=== PATIENT | male | born 1965 | race Caucasian/White ===

== ENCOUNTER 2017-01-05 16:48 | Day surgery (SDC) | payer OTHER ==
[~2017-01-05] VITALS: Ht 185.4 cm; Wt 105.0 kg
[~2017-01-05 16:48] MED LIST: LACTATED RINGER'S 1000 ML INJ 1,000 ML IV ONE; ONDANSETRON HCL 4 MG/2 ML VIAL IV PUSH ONE; PROPOFOL 200 MG/20 ML AMP IV ONE
[2017-01-05 16:52] VITALS: BP 143/83; PULSE 72; RESP 20; TEMP 97.9; O2SAT 99
--- NOTE | 2017-01-05 17:04 | PD ---
Physical Exam Date Seen by Provider: Jan 05, 2017 Time Seen by Provider: 17:00 Narrative 51 yr old male here with laceration that he sustained around 330 pm. He cut himself on a piece of glass while doing remodeling work at his house. He went to an urgent care and was told they would repair it, however patient had some issues with moving his thumb and was told to come to ED. He is not up to date on tetanus. He does have some limited ROM in the right thumb. Bleeding is controlled. He is awaiting bed placement. Data Data Last Documented VS Vital Signs Date Time Temp Pulse Resp B/P Pulse Ox O2 Delivery O2 Flow Rate FiO2 01/05/17 16:52 97.9 72 20 143/83 99 Room Air [facility] Medical Record Reviewed: Yes Supervised Visit with MARQUIS: No Condition: Stable Tami Stanford Jan 05, 2017 17:04
[2017-01-05] MEDS ORDERED: TETANUS/DIPHTHERIA TOXOID ADULT 0.5 ML VIAL IM ONE (18:00)
--- NOTE | 2017-01-05 18:10 | RADRPT ---
EXAM DATE/TIME: 01/05/2017 18:02 [place] COMPARISON: No previous studies available for comparison. INDICATIONS : Right hand pain after light bulb broke and lacerated hand. MEDICAL HISTORY : None. SURGICAL HISTORY : None. ENCOUNTER: Initial ACUITY: 1 day PAIN SCORE: 7/10 LOCATION: Right hand FINDINGS: No definite fractures, or dislocations are identified. No definite lytic or sclerotic lesion is seen . There is no evidence for a radiopaque foreign body for technique. CONCLUSION: Unremarkable study. Denise Callejas MD on January 05, 2017 at 18:08 Board Certified Radiologist. This report was verified electronically.
--- NOTE | 2017-01-05 19:48 | PD ---
HPI Chief Complaint: Laceration/Skin Injury Time Seen by Provider: 17:00 Travel History International Travel<30 days: No Contact w/Intl Traveler<30days: No Traveled to known affect area: No History of Present Illness HPI Patient is 51-year-old male presenting to him or for evaluation of a laceration to his right forearm just proximal to the wrist. Patient sustained a laceration when a fluorescent light bulb broke, falling from the ceiling and cutting him. Patient went to an urgent care center, when he could not extend his thumb he was sent to emergency department for further evaluation. Patient denies any significant past medical history. [facility] Past Medical History Medical History: Denies Significant Hx Tetanus Vaccination: > 5 Years Past Surgical History Surgical History: No Previous Surgery Social History Alcohol Use: No Tobacco Use: No Substance Use: No Allergies-Medications (Allergen,Severity, Reaction): Coded Allergies: No Known Allergies (Unverified , 01/05/17) Reported Meds & Prescriptions Reported Meds & Active Scripts Active Reported Cephalexin 500 Mg Cap 500 Mg PO Q12H Hydrocodone-Acetaminophen 5-325 mg Tab 1 Tab PO Q6H PRN Review of Systems Except as stated in HPI: all other systems reviewed are Neg Musculoskeletal: Positive: Limited ROM Skin: Positive Other (laceration) Physical Exam Narrative GENERAL: Well-developed, well-nourished, alert male. Resting comfortably in no acute distress. SKIN: Warm and dry. 1 cm laceration to the forearm just proximal to the wrist more so on the dorsal aspect base of wound is well visualized, no obvious tendon injury. HEAD: Normocephalic. EYES: No scleral icterus. No injection or drainage. NECK: Supple, trachea midline. No JVD or lymphadenopathy. CARDIOVASCULAR: Regular rate and rhythm without murmurs, gallops, or rubs. RESPIRATORY: Breath sounds equal bilaterally. No accessory muscle use. GASTROINTESTINAL: Abdomen soft, non-tender, nondistended. MUSCULOSKELETAL: No cyanosis, or edema. Limited extension of right first finger , patient is neurovascularly intact. BACK: Nontender without obvious deformity. No CVA tenderness. Data Data Last Documented VS Vital Signs Date Time Temp Pulse Resp B/P Pulse Ox O2 Delivery O2 Flow Rate FiO2 01/05/17 16:52 97.9 72 20 143/83 99 Room Air Orders Tetanus/Diphtheria Tox Adult (Tetanus/Di (01/05/17 18:00) Hand, Complete ([id number]) (01/05/17 ) Complete Blood Count With Diff (01/05/17 19:40) Basic Metabolic Panel (Bmp) (01/05/17 19:40) Act Partial Throm Time (Ptt) (01/05/17 19:40) Prothrombin Time / Inr (Pt) (01/05/17 19:40) Iv Access Insert/Monitor (01/05/17 19:40) Admit Order (Ed Use Only) (01/05/17 19:49) MDM Medical Decision Making Medical Screen Exam Complete: Yes Emergency Medical Condition: Yes Interpretation(s) Last Impressions Hand X-Ray 01/05/17 0000 Signed Impressions: Service Date/Time: Saturday, January 05, 2017 18:02 - CONCLUSION: Unremarkable study. Denise Callejas MD Vital Signs Date Time Temp Pulse Resp B/P Pulse Ox O2 Delivery O2 Flow Rate FiO2 01/05/17 16:52 97.9 72 20 143/83 99 Room Air Differential Diagnosis Laceration versus tendon injury versus other Narrative Course Patient's 51-year-old male presenting for evaluation of a laceration to his right wrist that appears to have tendon involvement. Patient is neurovascularly intact. Discussed with Dr. Etienne, he was sent images of the laceration. Due to patient's limited movement previous full function patient will be taken to the OR for exploration and tendon repair. Abrasion has not eaten since noon today. CBC, BMP, coags ordered. Patient is aware of plan and agreeable. Diagnosis Primary Impression: Tendon dysfunction Additional Impression: Laceration of wrist with complication Qualified Code: S61.511A - Laceration of wrist with complication, right, initial encounter Admitting Information Admitting Physician Requests: Observation Condition: Stable Harika De Luna Jan 05, 2017 19:47
--- NOTE | 2017-01-05 20:42 | MB ---
cc: ISAAC MARES MD DATE OF CONSULTATION: 01/05/2017. REASON FOR CONSULTATION: Right wrist / forearm laceration. HISTORY OF PRESENT ILLNESS: The patient is a 51-year-old right hand-dominant male who presented to the emergency department with complaints of laceration to the right wrist / forearm today. The patient sustained a laceration when a florescent light bulb broke and fell from the ceiling lacerating his right distal forearm. The patient is presenting with inability to move the thumb. He denies any tingling or numbness. The patient was initially seen at Urgent Care and was referred to [facility] for further evaluation. He denies any other injuries. PAST MEDICAL HISTORY / PAST SURGICAL HISTORY: His past medical-surgical history are noted and are not significant. EXAMINATION The patient is alert and oriented x3. Examination of the right forearm / wrist reveals an oblique laceration over the radial aspect of the distal forearm over the first dorsal compartment region. The laceration measures about 2 cm. The patient has swelling over the thumb base and he has tenderness noted over the region. The patient has intact active extension of the thumb IP joint. He has limited abduction and extension at the MP and the thumb CMC joint. Range of motion of the thumb passively is full. Passive flexion of the thumb is associated with pain. He has intact sensation over the dorsal aspect of the thumb. IMAGING STUDIES: X-rays of the right wrist and hand was reviewed and show no evidence of foreign body or bony injury. ASSESSMENT: 51-year-old male with laceration to the right wrist / distal forearm with questionable laceration of the first dorsal compartment tendons. PLAN: The plan will be to keep the patient n.p.o., take him emergently for exploration, possible repair of extensor and abductor tendons right thumb. The patient has been explained the risks and benefits of the procedure. Isaac Mares MD SE/GIDEON /8:35 PM /8:42 PM [facility]O
[2017-01-05] MEDS ORDERED: ACETAMINOPHEN 1000 MG/100 ML VIAL IV ONE (20:44)
[2017-01-05] MEDS ORDERED: MIDAZOLAM HCL 2 MG/2 ML VIAL ONE (20:45)
[2017-01-05] MEDS ORDERED: METOCLOPRAMIDE HCL 10 MG/2 ML VIAL ONE (20:45)
[2017-01-05] MEDS ORDERED: FAMOTIDINE 20 MG/2 ML VIAL ONE (20:45)
[2017-01-05] MEDS ORDERED: ceFAZolin INJ 1,000 MG VIAL IV ONE (20:57)
[2017-01-05] MEDS ORDERED: LIDOCAINE HCL 2% 20 ML VIAL INFIL ONE (21:08)
[2017-01-05] MEDS ORDERED: BUPIVACAINE HCL PF 0.5% 10 ML VIAL INFIL ONE (21:08)
[2017-01-05 21:15] LABS: AUTOMATED NEUTROPHIL # 4.2 TH/MM3 (1.8-7.7); BASOPHIL # 0.1 TH/MM3 (0-0.2); BASOPHIL % 0.8 % (0.0-2.0); EOSINOPHIL # 0.1 TH/MM3 (0-0.4); EOSINOPHIL % 1.3 % (0.0-4.0); HEMATOCRIT 45.2 % (39.0-51.0); HEMO FLAGS DIFF FINAL; LYMPH % 29.4 % (9.0-44.0); MEAN CELL VOLUME 91.4 FL (80.0-100.0); MEAN CORPUSCULAR HGB CONC 32.8 % (32.0-36.0); MONO % 6.6 % (0.0-8.0); NEUT % 61.9 % (16.0-70.0); PLATELET COUNT 247 TH/MM3 (150-450); RED BLOOD COUNT 4.95 MIL/MM3 (4.50-5.90); RED CELL DISTRIBUTION WIDTH 13.5 % (11.6-17.2); WHITE BLOOD COUNT 6.8 TH/MM3 (4.0-11.0)
[2017-01-05] MEDS ORDERED: NEOMYCIN/POLYMYXIN 1 ML G.U. IRRIGANT TOPICAL ONE (21:15)
[2017-01-05 21:29] LABS: APTT (PATIENT) 27.3 SEC (24.3-30.1); PROTHROMBIN TIME - PATIENT 11.5 SEC (9.8-11.6)
[2017-01-05 21:38] LABS: BICARBONATE 32.5 MEQ/L (21.0-32.0); POTASSIUM 3.6 MEQ/L (3.5-5.1)
--- NOTE | 2017-01-05 22:39 | PD.OP ---
Operative Report Preoperative Diagnosis: (1) Laceration of right wrist with tendon involvement Postoperative Diagnosis: (1) Laceration of right wrist with tendon involvement (2) laceration abductor pollicis longus right wrist (3) laceration extensor pollicis brevis right wrist Procedure: exploration repair of laceration abductor pollicis longus and extensor pollicis brevis tendons right wrist/forearm Anesthesia: general Surgeon: Ren Peguero [employer] Helper(s): none Operation and Findings: oblique laceration over the first dorsal compartment of the right wrist/distal forearm measuring 2-3 cms laceration of the extensor pollicis brevis laceration of the abductor pollicis longus Ren Peguero MD Jan 05, 2017 22:39
[2017-01-05] MEDS ORDERED: ACETAMINOPHEN/HYDROcodone 325 MG/5 MG TAB PO PRN (23:00)
[2017-01-05] MEDS ORDERED: DO NOT ADM ANY ANTICOAGULANT DRUGS PRN (23:00)
--- NOTE | 2017-01-05 23:07 | MP ---
cc: ISAAC MARES DATE OF SURGERY 01/05/17 PREOPERATIVE DIAGNOSIS Laceration right wrist/forearm with tendon involvement. POSTOPERATIVE DIAGNOSIS Laceration right wrist/forearm and laceration of the extensor pollicis brevis tendon and laceration abductor pollicis longus tendon. PROCEDURE Exploration repair extensor pollicis brevis tendon and abductor pollicis longus tendon right wrist/forearm SURGEON Dr. Erika Mares ANESTHESIA General ESTIMATED BLOOD LOSS Minimal TOURNIQUET TIME one hour and 12 minutes at 250 mmHg. COMPLICATIONS None DISPOSITION The patient was recovered sent to recovery in stable condition. INDICATIONS The patient is a 51-year-old right-hand dominant male who presented with laceration of the right wrist/distal forearm this afternoon. The patient states florescent bulb broke and lacerated his right wrist/forearm. He was complaining of inability to abduct or extend the thumb. On examination, he had an oblique laceration over the first dorsal compartment of the wrist measuring about 2-3 cm. The patient was able to actively extend the IP joint of the thumb. He was unable to abduct the thumb and he also had weakness of extension and abduction of the thumb CMC and MP joints. X-rays were negative. Clinically, he was diagnosed with laceration of tendons in the first dorsal compartment of the wrist and was consented for exploration, repair of the abductor pollicis longus tendon and the extensor pollicis brevis tendon. The patient was explained risk and benefits of the procedure. PROCEDURE IN DETAIL The patient was brought to the operating room under general anesthesia. The right upper extremity was thoroughly prepped and draped. Exploration of the wound was carried out. He had a 2 cm laceration over the first dorsal compartment of the wrist. He had complete laceration of the extensor pollicis brevis tendon and abductor pollicis longus tendon. Limb was examined using Esmarch tourniquet. Tourniquet was inflated to 250 mmHg. Incision was made extending the laceration distally. On further exploration, the radial sensory nerve was intact. There was a laceration of the first dorsal compartment and laceration of the abductor pollicis longus and extensor pollicis brevis tendon. Abductor pollicis longus had multiple bands which were all completely lacerated. The extensor compartment was released under vision both proximally and distally protecting the sensory branch of the radial nerve. The tendon edges were exposed. The proximal stumps were withdrawn into the laceration site. A thorough wash was given with normal saline mixed with irrigant. Attention was initially directed to the extensor pollicis brevis tendon. This was held in place with hypodermic needles. A 3-0 Ethibond suture was then applied in a cross cruciate fashion approximated the tendon edges with four strands crossing across the repair site. The abductor pollicis longus tendon was repaired as two bands in a cross cruciate fashion using 3-0 Ethibond with four strands crossing the repair site. This was then reinforced with 5-0 nylon in a circumferential fashion. The thumb was put through range of motion. The tendon edges were holding in place. Thorough wash was given. Skin was then approximated using 4-0 nylon in a horizontal mattress interrupted fashion. Xeroform bacitracin dressing applied. The patient also had a small laceration over the dorsal aspect of the little finger which was approximated with a single horizontal mattress nylon stitch. Bulky hand dressing was applied which was held in place by a volar splint. Tourniquet was deflated. Total tourniquet time was 1 hour 12 minutes. The patient had good distal circulation after release of tourniquet. He was recovered and sent to recovery in stable condition. The patient will be discharged home today on p.o. antibiotics and pain medication. He will follow up with me in two to three days for dressing and splint change. Isaac Mares MD SE/ /10:46 PM /10:58 PM [facility]
[2017-01-05] MEDS ORDERED: CEPH500C PO (23:24)
[2017-01-05] MEDS ORDERED: HYDR-3516 PO (23:24)
[2017-01-05 23:30] VITALS: BP 131/88; PULSE 71; RESP 17; TEMP 97.4; O2SAT 95
== END 2017-01-06 | disposition home or self-care (01) ==
LOC: NEPD 16:48 → HSDC 19:57
PROVIDERS: ATTEND Surgery Surgery of the Hand
DX: S61.511A Laceration without foreign body of right wrist, initial encounter (principal); M79.641 Pain in right hand; W26.8XXA Contact with other sharp object(s), not elsewhere classified, initial encounter; Y93.89 Activity, other specified; Y92.018 Other place in single-family (private) house as the place of occurrence of the external cause; Z23 Encounter for immunization
CPT/HCPCS: 01810; 25270; 73130; 80048; 85025; 85610; 85730; 90471; 90714; 99285; J0131; J0690; J2250; J2405; J2765; J7120